=== PATIENT | male | born 1985 | race Caucasian/White ===

== ENCOUNTER 2018-08-03 22:38 | Outpatient (REF) | payer SELFPAY ==
[2018-08-03 21:38] LABS: ALT 111 U/L (12-78); AST 52 U/L (15-37); Albumin 3.6 g/dL (3.4-5.0); Alkaline Phosphatase 92 U/L (46-116); Anion Gap 7.6 mmol/L (3-11); BUN 15 mg/dL (7-18); Bilirubin, Total 0.6 mg/dL (0.2-1.0); CO2 30.4 mmol/L (21.0-32.0); Calcium 9.3 mg/dL (8.5-10.1); Chloride 100 mmol/L (98-107); Glucose 116 mg/dL (70-100); Potassium 4.1 mmol/L (3.5-5.1); Sodium 138 mmol/L (136-145); Total Protein 7.5 g/dL (6.4-8.2)
== END 2018-08-03 22:58 ==
LOC: NCHCN 22:38
PROVIDERS: PCP Physician Assistant Medical; Visit Provider Physician Assistant Medical
DX: I10 Essential (primary) hypertension (principal)
CPT/HCPCS: 80053

== ENCOUNTER 2020-01-22 16:11 | Emergency (ER) | payer MEDICAID, SELFPAY ==
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
--- NOTE | 2020-01-22 16:15 | RT.EKG_ITS ---
APPROVED REPORT Exam: Resting ECG Patient Location: E HR:80 bpm ECG Measurements Heart Rate 80 AXIS KS 177 P 17 QRSd 109 QRS 34 QT 382 T 51 QTc 441 Conclusion Sinus rhythm...normal P axis, V-rate 60- 99
[2020-01-22 16:16] VITALS: BP 126/80; PULSE 85; RESP 20; TEMP 36.7; O2SAT 98
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
[2020-01-22 16:36] LABS: Abs Immature Grans 0.25 10^3/uL (0.0-0.06); Absolute Eosinophil Count 0.09 10^3/uL (0.0-0.7); Absolute Monocyte Count 1.42 10^3/uL (0.1-0.8); Absolute Neutrophil Count 10.18 10^3/uL (1.2-6.7); Basophils % 0.3; Eosinophils % 0.6; HCT 45.3 % (40.0-50.0); HGB 15.2 g/dL (13.5-17.5); Immature Grans % 1.6; Lymphocytes % 21.6; MCH 31.9 pg (27.0-33.0); MCHC 33.6 % (32.0-36.0); MPV 9.7 fL (8.0-11.0); Monocytes % 9.3; Neutrophils % 66.6; Nucleated RBC 0 %; Platelet Count 255 10^3/uL (130-400); RBC 4.77 10^6/uL (4.36-5.78); RDW 13.9 % (11.8-14.1); RDW-SD 48.7 fL; WBC 15.29 10^3/uL (4.4-10.8)
[2020-01-22 16:41] LABS: Absolute Basophil Count 0.05 10^3/uL (0.0-0.2)
[2020-01-22 16:55] LABS: ALT 100 U/L (16-63); AST 94 U/L (15-37); Albumin 3.5 g/dL (3.4-5.0); Alkaline Phosphatase 75 U/L (46-116); Anion Gap 10.7 mmol/L (3-11); BUN 15 mg/dL (7-18); Bilirubin, Total 0.5 mg/dL (0.2-1.0); CO2 28.3 mmol/L (21.0-32.0); CREATININE 1.24 mg/dL (0.70-1.30); Calcium 8.9 mg/dL (8.5-10.1); Chloride 97 mmol/L (98-107); ETHANOL BLOOD 138.3 mg/dL (<3); Glucose 103 mg/dL (74-106); Potassium 3.5 mmol/L (3.5-5.1); Sodium 136 mmol/L (136-145); Total Protein 7.4 g/dL (6.4-8.2)
[2020-01-22 16:58] LABS: Troponin I < 0.05 ng/mL (<0.06)
[2020-01-22] MEDS: fentaNYL 100 MCG/2 ML VIAL IVP (17:03)
[2020-01-22] MEDS: Omnipaque 350 MG/ML 100 ML BTL IJ (17:19)
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
[2020-01-22] MEDS: Lactated Ringers 1,000 ML 150 ML IV (18:01)
[2020-01-22 18:09] VITALS: BP 114/83; PULSE 98; RESP 22; TEMP 36; O2SAT 98
--- NOTE | 2020-01-22 18:46 | NUR.NOTE ---
Nursing Note: Pt vital signs lost from monitor after discharge. Pt had remained hemodynamically stable during stay, BP remained above 100 systolic, HR 80's-100, Ox remained above 96%
== END 2020-01-22 18:00 | disposition short-term general hospital (02) ==
PROVIDERS: Emergency Provider Student in an Organized Health Care Education/Training Program; PCP Physician Assistant Medical
DX: S22.41XA Multiple fractures of ribs, right side, initial encounter for closed fracture (principal); S27.0XXA Traumatic pneumothorax, initial encounter; S32.9XXA Fracture of unspecified parts of lumbosacral spine and pelvis, initial encounter for closed fracture; S01.112A Laceration without foreign body of left eyelid and periocular area, initial encounter; V53.5XXA Driver of pick-up truck or van injured in collision with car, pick-up truck or van in traffic accident, initial encounter; F10.120 Alcohol abuse with intoxication, uncomplicated; Y90.6 Blood alcohol level of 120-199 mg/100 ml; I10 Essential (primary) hypertension
CPT/HCPCS: 36415; 74177; 80053; 86850; 86900; 86901; 90471; 93005; 96374; 99291; 70450; 71260; 72125; 80320; 84484; 85025; 93010; J3010; J3490

== ENCOUNTER 2020-03-02 11:17 | Emergency (ER) | payer MEDICAID, SELFPAY ==
[2020-03-02] VITALS (92 sets, daily range): BP systolic 109–161; BP diastolic 58–87; PULSE 84–123; RESP 12–30; TEMP 37.7–39.1; O2SAT 94–100
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
[2020-03-02] MEDS: Acetaminophen 500 MG TAB 1000 MG PO (12:15)
[2020-03-02 12:27] LABS: Bilirubin Negative (Negative); Blood Negative (Negative); Clarity Clear (Clear); Glucose Negative (Negative); Ketones Negative (Negative); Leukocyte Esterase Negative (Negative); Nitrite Negative (Negative); Specific Gravity 1.025 (1.005-1.025); Urobilinogen 0.2 EU/dL (Up TO 0.2)
[2020-03-02] MEDS: Normal Saline 1,000 ML 1000 ML IV ×3 (12:40→15:39)
[2020-03-02] MEDS: Normal Saline Flush 10 ML SYR IVP (12:40)
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
[2020-03-02 14:25] LABS: Abs Immature Grans 0.07 10^3/uL (0.0-0.06); Absolute Basophil Count 0.03 10^3/uL (0.0-0.2); Absolute Eosinophil Count 0.01 10^3/uL (0.0-0.7); Absolute Lymphocyte Count 1.23 10^3/uL (1.2-3.4); Absolute Neutrophil Count 11.22 10^3/uL (1.2-6.7); Basophils % 0.2; Eosinophils % 0.1; HCT 43.8 % (40.0-50.0); HGB 14.5 g/dL (13.5-17.5); Immature Grans % 0.5; Lymphocytes % 8.8; MCH 30.1 pg (27.0-33.0); MCHC 33.1 % (32.0-36.0); MCV 90.9 fL (80-95); MPV 8.9 fL (8.0-11.0); Monocytes % 10.3; Neutrophils % 80.1; Nucleated RBC 0 %; Platelet Count 267 10^3/uL (130-400); RBC 4.82 10^6/uL (4.36-5.78); RDW 12.4 % (11.8-14.1); RDW-SD 41.2 fL; WBC 14.01 10^3/uL (4.4-10.8)
[2020-03-02 14:27] LABS: Absolute Monocyte Count 1.44 10^3/uL (0.1-0.8)
[2020-03-02 14:36] LABS: INR 1.1 (0.9-1.1); Prothrombin Time 11.1 sec (9.3-11.0)
[2020-03-02 14:43] LABS: ALT 28 U/L (16-63); AST 20 U/L (15-37); Albumin 3.4 g/dL (3.4-5.0); Alkaline Phosphatase 189 U/L (46-116); Anion Gap 11.6 mmol/L (3-11); BUN 17 mg/dL (7-18); Bilirubin, Total 0.6 mg/dL (0.2-1.0); CO2 25.4 mmol/L (21.0-32.0); CREATININE 0.94 mg/dL (0.70-1.30); Calcium 9.1 mg/dL (8.5-10.1); Chloride 99 mmol/L (98-107); Glucose 101 mg/dL (74-106); Potassium 4.2 mmol/L (3.5-5.1); Sodium 136 mmol/L (136-145); Total Protein 7.6 g/dL (6.4-8.2)
[2020-03-02 14:59] LABS: ESR 24 mm/hr (0-15)
[2020-03-02] MEDS: Omnipaque 350 MG/ML 100 ML BTL IJ (15:20)
[2020-03-02] MEDS: Normal Saline - Diluent 50 ML VIAL IV (15:21)
[2020-03-02] MEDS: VANCOMYCIN/WATER (PEG) 2 GM/400 ML BAG IVPB (16:10)
[2020-03-02] MEDS: PIPERACILLIN/TAZO 3.375 GM in Normal Saline 50 ML IVPB (16:12)
[2020-03-02] MEDS: Acetaminophen 500 MG TAB PO (16:55)
[2020-03-02] MEDS: Ibuprofen 600 MG TAB PO (18:04)
[2020-03-04 13:10] LABS: SARS-CoV-2 RNA Detected (NotDetected); SARS-CoV-2 RNA Source Nasopharynx
== END 2020-03-02 18:35 | disposition short-term general hospital (02) ==
PROVIDERS: Physician Assistant; Emergency Provider Registered Nurse Emergency; PCP Physician Assistant Medical
DX: L02.214 Cutaneous abscess of groin (principal); Y83.8 Other surgical procedures as the cause of abnormal reaction of the patient, or of later complication, without mention of misadventure at the time of the procedure; Z11.59 Encounter for screening for other viral diseases; I10 Essential (primary) hypertension
CPT/HCPCS: 36415; 71275; 74177; 80053; 85652; 87040; 96361; 96365; 96366; 96375; 99291; U0003; 81003; 83605; 85025; 85610; 86140; J2543; J3490

== ENCOUNTER 2020-03-24 21:57 | Outpatient (REF) | payer MEDICAID, SELFPAY ==
[2020-03-24 19:03] LABS: Abs Immature Grans 0.03 10^3/uL (0.0-0.06); Absolute Basophil Count 0.04 10^3/uL (0.0-0.2); Absolute Eosinophil Count 0.16 10^3/uL (0.0-0.7); Absolute Lymphocyte Count 2.37 10^3/uL (1.2-3.4); Absolute Monocyte Count 0.97 10^3/uL (0.1-0.8); Absolute Neutrophil Count 5.46 10^3/uL (1.2-6.7); Basophils % 0.4; Eosinophils % 1.8; HCT 44.5 % (40.0-50.0); HGB 14.8 g/dL (13.5-17.5); Immature Grans % 0.3; Lymphocytes % 26.2; MCH 29.4 pg (27.0-33.0); MCHC 33.3 % (32.0-36.0); MCV 88.5 fL (80-95); MPV 9.9 fL (8.0-11.0); Monocytes % 10.7; Neutrophils % 60.6; Nucleated RBC 0 %; Platelet Count 333 10^3/uL (130-400); RBC 5.03 10^6/uL (4.36-5.78); RDW 12.3 % (11.8-14.1); RDW-SD 39.4 fL; WBC 9.03 10^3/uL (4.4-10.8)
[2020-03-24 19:44] LABS: ESR 26 mm/hr (0-15)
[2020-03-26 16:14] LABS: CRP, High Sensitivity 12.42 mg/L (See Note)
== END 2020-03-24 22:17 ==
LOC: NCHCN 21:57
PROVIDERS: PCP Physician Assistant Medical; Visit Provider Physician Assistant Medical
DX: K65.1 Peritoneal abscess (principal)
CPT/HCPCS: 85652; 86141; 85025

== ENCOUNTER 2020-04-18 20:27 | Outpatient (REF) | payer MEDICAID, SELFPAY ==
[2020-04-18 20:29] LABS: ALT 55 U/L (16-63); AST 23 U/L (15-37); Alkaline Phosphatase 132 U/L (46-116); BUN 22 mg/dL (7-18); Bilirubin, Total 0.3 mg/dL (0.2-1.0); CREATININE 0.94 mg/dL (0.70-1.30); Calcium 9.2 mg/dL (8.5-10.1); Calculated LDL 137 mg/dL (<100); Chloride 101 mmol/L (98-107); Cholesterol 211 mg/dL (<200); Glucose 87 mg/dL (74-106); HDL Cholesterol 42 mg/dL (40-60); Potassium 4.5 mmol/L (3.5-5.1); Sodium 138 mmol/L (136-145); Triglyceride 160 mg/dL (<150)
[2020-04-18 20:41] LABS: Hemoglobin A1C 5.3 % (<5.7)
[2020-04-18 20:52] LABS: Uric Acid 7.4 mg/dL (3.5-7.2)
== END 2020-04-18 20:47 ==
LOC: NCHCN 20:27
PROVIDERS: PCP Physician Assistant Medical; Visit Provider Physician Assistant Medical
DX: I10 Essential (primary) hypertension (principal); R79.89 Other specified abnormal findings of blood chemistry; R73.9 Hyperglycemia, unspecified
CPT/HCPCS: 80053; 80061; 83036; 84550

== ENCOUNTER 2020-05-12 12:58 | Outpatient (REF) | payer MEDICAID, SELFPAY | END 2020-05-12 13:18 | LOC: NCHCN 12:58 | PROVIDERS: PCP Physician Assistant Medical; Visit Provider Physician Assistant Medical | DX: Z48.03 Encounter for change or removal of drains (principal); Z51.89 Encounter for other specified aftercare | CPT/HCPCS: 87070; 87205 ==

== ENCOUNTER 2020-11-24 12:17 | Outpatient (REF) | payer MEDICAID, SELFPAY ==
[2020-11-24 17:07] LABS: ALT 70 U/L (16-63); AST 38 U/L (15-37); Albumin 4.3 g/dL (3.4-5.0); Alkaline Phosphatase 130 U/L (46-116); Anion Gap 13.6 mmol/L (3-11); BUN 21 mg/dL (7-18); Bilirubin, Total 0.8 mg/dL (0.2-1.0); CO2 23.4 mmol/L (21.0-32.0); CREATININE 1.1 mg/dL (0.70-1.30); Calcium 9.5 mg/dL (8.5-10.1); Calculated LDL 160 mg/dL (<100); Chloride 102 mmol/L (98-107); Cholesterol 231 mg/dL (<200); Glucose 98 mg/dL (74-106); HDL Cholesterol 37 mg/dL (40-60); Potassium 4.6 mmol/L (3.5-5.1); Sodium 139 mmol/L (136-145); Total Protein 7.9 g/dL (6.4-8.2); Triglyceride 170 mg/dL (<150)
[2020-11-24 17:18] LABS: Uric Acid 6.8 mg/dL (3.5-7.2)
== END 2020-11-24 12:18 | disposition home or self-care (01) ==
LOC: NCHCN 12:17
PROVIDERS: PCP Physician Assistant Medical; Visit Provider Physician Assistant Medical
DX: I10 Essential (primary) hypertension (principal); E66.01 Morbid (severe) obesity due to excess calories
CPT/HCPCS: 80053; 80061; 84550

== ENCOUNTER 2021-02-09 17:17 | Emergency (ER) | payer MEDICAID, SELFPAY ==
[2021-02-09 17:26] VITALS: BP 153/90; PULSE 75; RESP 16; TEMP 36.2; O2SAT 98
--- NOTE | 2021-02-09 17:58 | W.ED.GENAD ---
Discharge Plan Disposition Patient Disposition: HOME Condition: Stable Discharge Details Clinical Impression: Pain, dental, Sinus pain Primary Care Provider: Steph Villanueva ED Provider: Clarisa Adkins Home Meds and New Rx's Prescriptions: New amoxicillin-pot clavulanate [Augmentin] 875-125 mg tablet 1 tab PO BID Qty: 14 RF: 0 Continued atenolol 25 mg Tablet 25 mg PO DAILY RF: 0 amlodipine 5 mg Tablet 5 mg PO DAILY RF: 0 hydrochlorothiazide 12.5 mg Tablet 12.5 mg PO DAILY RF: 0 lisinopril 5 mg tablet 5 mg PO DAILY RF: 0 Discharge Instructions Instructions: Toothache (ED) Additional Instructions: Please encourage hydration. Tylenol and/or ibuprofen as needed for discomfort. Please take the antibiotic as prescribed. You will need definitive care with a dentist, attached is a little of local dentist. Please call Friday to schedule follow-up appointment. Please also follow-up with your primary care in the next few weeks for reevaluation and discuss your elevated blood pressure. If you develop fever/chills, increased pain or other new/worsening symptoms please seek care urgently once again. Referrals: Steph Villanueva PA [Primary Care Provider] - Discharge Data Discharge Date/Time-TO BE ENTERED AT DEPARTURE: 02/09/21 18:22 Medical Decision Making Patient is a pleasant 35-year-old male presenting today with chief complaint of right upper dental pain. States this began about 8 days ago and is progressively been increasing. Denies any fevers or chills. States the pain is also in the right sinus. States that initially presents with sinus disease has some congestion and sore throat. However, is now having pain when he bites down on the posterior right upper molar. Pain is worse with eating. States that area of pain is cracked, has not seen a dentist in 5+ years. On exam, patient appears nontoxic. Normal tympanic membrane. Patient has enlarged lymph node on the left side but he states that this is chronic and unchanged. Intraoral exam is fairly benign. He does have tenderness near the #2 tooth and this tooth is cracked. However, the gingiva around this are normal. I do not appreciate any swelling, erythema. Patient has been reporting some facial swelling but this is not objectively noted on exam. No area of fluctuance. Posterior oropharynx is normal. No swelling under the tongue. Patient is tender over the maxillary sinus and does have some yellow discharge from his nose. I am more concerned for sinusitis at this time rather than dental infection. It is quite early in the course to treat for sinusitis. However, as he is having dental pain with chewing as well as a cracked tooth, I did consider an atypical presentation of a dental infection. Will treat with antibiotics. Encourage hydration. Return precautions were discussed. History exam is not consistent with meningitis your [employer] infection at this time. Patient does not appear septic. List of local dentist given to the patient. He will call Friday to schedule follow-up appointment for definitive care. Patient's blood pressure also slightly elevated. Advise follow-up with primary care. All questions concerns were addressed in agreement this plan. HPI General Mode of arrival: ambulatory. Date/Time Provider Initiated Documentation: 02/09/21 17:58. Limitations to Documentation: no limitations. Information obtained by: patient and RN notes reviewed. History of Present Illness 35 year old M presents to the emergency department with the chief complaint of right upper dental pain, described as severe, with intensity rated at 8. Quality is described as aching, and is localized to the mouth. Patient reports no radiation. Patient started experiencing this day(s) and it has been constant. No relieving factors improve symptom(s), Eating worsens symptoms . Patient notes no other symptoms.; denies cough, fever/chills, loss of appetite, nausea/vomiting and rash. Patient did receive the following treatments prior to arrival, none Related Data Home Medications Medication Instructions Recorded Confirmed amlodipine 5 mg PO DAILY 01/22/20 02/09/21 atenolol 25 mg PO DAILY 01/22/20 02/09/21 hydrochlorothiazide 12.5 mg PO DAILY 01/22/20 02/09/21 lisinopril 5 mg PO DAILY 03/02/20 02/09/21 amoxicillin-pot clavulanate 1 tab PO BID #14 tab 02/09/21 [Augmentin] Previous Rx's Medication Instructions Recorded amoxicillin-pot clavulanate 1 tab PO BID #14 tab 02/09/21 [Augmentin] Allergies Allergy/AdvReac Type Severity Reaction Status Date / Time No Known Allergies Allergy Unverified 02/09/21 17:34 General Stated Complaint: DentalOral SUKHWINDER: 4 Review of Systems Constitutional Constitutional: Reports as per HPI, Denies chills, Denies fatigue, Denies fever(s) and Denies headache(s) ENT Ears, Nose, Mouth, and Throat: Reports as per HPI, Reports halitosis, Reports dental pain, Denies dysphagia, Denies dizziness, Denies ear discharge, Denies otalgia, Reports facial pain, Denies headache(s), Denies lip swelling, Denies nasal congestion, Reports nasal discharge, Denies odynophagia, Reports sinus pain, Reports sinus pressure, Denies sore throat and Denies throat swelling Respiratory Respiratory: Reports as per HPI and Denies cough Gastrointestinal Gastrointestinal: Reports as per HPI, Denies dysphagia and Denies odynophagia Integumentary/Breasts Skin/Breast: Reports as per HPI, Denies erythema, Denies rash and Denies skin pain Neurologic Neurologic: Reports as per HPI, Denies dizziness and Denies headache(s) Endocrine Endocrine: Denies fatigue Allergic/Immunologic Allergic/Immunologic: Denies lip swelling and Denies throat swelling PFSH Medical History Hypertension Social History Smoking/Tobacco Use Status: Never Smoking risk assessment performed?: Yes Alcohol Intake: current Alcohol Intake frequency: a few times a month Substance use type: does not use Do you feel safe at home: Yes Do you feel safe in your relationship?: Yes Exam Const General: cooperative, healthy appearing, comfortable, no acute distress, well developed and well groomed Nutritional Appearance: well nourished and obese Orientation: alert and awake [facility] Head: normal to inspection, normocephalic and atraumatic Ears: hearing grossly normal bilaterally, external ears normal and TM's normal bilaterally General nose exam: external nose normal and nares normal Face and sinus: normal facial exam, face symmetric and sinus tenderness (right) maxillary Mouth: oral mucosae normal, lip normal, tongue normal, oropharynx normal, no muffled voice, no trismus and No restricted motion Teeth and gingiva: gingiva normal and fair dentition (caries noted at the #2 tooth, at area of pain) Throat: posterior oropharynx normal, tonsils normal and uvula midline Eyes General: appearance normal, both eyes and all related structures Neck Neck: normal visual inspection, full ROM, lymphadenopathy noted (on left, patient states this is chronic), supple and no anterior neck swelling Resp Effort & Inspection: normal respiratory effort, able to speak in complete sentences and no respiratory distress Auscultation: clear to auscultation bilaterally, no rales, no rhonchi and no wheezes Cardio Rate: regular rate Rhythm: regular rhythm Heart Sounds: S1 normal and S2 normal Skin General skin exam: no rashes or lesions noted Trauma: no lacerations or abrasions Neuro General: patient alert and patient awake Cognition: normal cognition Speech: speech normal Gait: normal gait Psych Appearance: grossly normal and well kempt Mental Status: mental status grossly normal Speech and Movement: speech and movement normal Course Vital Signs Vital signs: Vital Signs Temperature 36.2 C L 02/09/21 17:26 Pulse 75 02/09/21 17:26 Respiratory Rate 16 02/09/21 17:26 Blood Pressure 153/90 H 02/09/21 17:26 Pulse Oximetry 98 02/09/21 17:26 Temperature 36.2 C L 02/09/21 17:26 Temperature Source Tympanic 02/09/21 17:26 Pulse 75 02/09/21 17:26 Respiratory Rate 16 02/09/21 17:26 Respiratory Effort Non-Labored 02/09/21 17:30 Blood Pressure 153/90 H 02/09/21 17:26 Blood Pressure Position Sitting 02/09/21 17:26 Pulse Oximetry 98 02/09/21 17:26 Pain Level 8 02/09/21 17:30 PAWSS Have you Been Recently Intoxicated or Drunk Within the Last 30 days?: No Have you Ever Experienced Previous Episodes of Alcohol Withdrawal?: No Have you ever Experienced Withdrawal Seizures?: No Have you ever Experienced Delirium Tremens(DT)s?: No Have you ever undergone Alcohol Rehabilitation Treatment (i.e, inpt ot outpatient treatment programs)?: No Have you ever Experienced Blackouts?: No Have you ever Combined Alcohol with other Downers within the last 90 days?: No Have you ever Combined Alcohol with any other Substance of Abuse during the last 90 days?: No Positive Blood Alcohol level on Presentation? [PCS.BAL]: No Evidence of Increased Autonomic Activity (i.e. HR>120, tremor, sweating, agitation, nausea)?: No Result: 0
== END 2021-02-09 18:22 | disposition home or self-care (01) ==
PROVIDERS: Emergency Provider Physician Assistant; PCP Physician Assistant Medical
DX: R68.84 Jaw pain (principal); J01.00 Acute maxillary sinusitis, unspecified
CPT/HCPCS: 99283

== ENCOUNTER 2021-07-17 16:55 | Outpatient (REF) | payer MEDICAID, SELFPAY ==
[2021-07-17 19:46] LABS: Hemoglobin A1C 5.3 % (<5.7)
[2021-07-17 19:48] LABS: ALT 48 U/L (16-63); AST 25 U/L (15-37); Alkaline Phosphatase 133 U/L (46-116); Anion Gap 7.1 mmol/L (3-11); BUN 18 mg/dL (7-18); Bilirubin, Total 0.5 mg/dL (0.2-1.0); CO2 27.9 mmol/L (21.0-32.0); CREATININE 0.9 mg/dL (0.70-1.30); Calcium 9.3 mg/dL (8.5-10.1); Calculated LDL 114 mg/dL (<100); Chloride 103 mmol/L (98-107); Cholesterol 160 mg/dL (<200); Glucose 97 mg/dL (74-106); HDL Cholesterol 36 mg/dL (40-60); Potassium 4.3 mmol/L (3.5-5.1); Sodium 138 mmol/L (136-145); Total Protein 7.1 g/dL (6.4-8.2); Triglyceride 52 mg/dL (<150)
[2021-07-24 15:16] LABS: Testosterone, Free 9.41 ng/dL (4.65-18.1); Testosterone, Total 392 ng/dL (240-950)
== END 2021-07-17 16:56 | disposition home or self-care (01) ==
LOC: NCHCN 16:55
PROVIDERS: PCP Physician Assistant Medical; Visit Provider Physician Assistant Medical
DX: I10 Essential (primary) hypertension (principal)
CPT/HCPCS: 80053; 80061; 84402; 84403; 83036; 84443

== ENCOUNTER 2021-11-16 21:44 | Outpatient (REF) | payer MEDICAID, SELFPAY ==
[2021-11-16 16:02] LABS: ALT 45 U/L (16-63); AST 30 U/L (15-37); Albumin 3.9 g/dL (3.4-5.0); Alkaline Phosphatase 106 U/L (46-116); Anion Gap 7.1 mmol/L (3-11); BUN 33 mg/dL (7-18); Bilirubin, Total 0.4 mg/dL (0.2-1.0); CO2 28.9 mmol/L (21.0-32.0); CREATININE 0.9 mg/dL (0.70-1.30); Calcium 9.1 mg/dL (8.5-10.1); Chloride 101 mmol/L (98-107); Glucose 115 mg/dL (74-106); Potassium 3.6 mmol/L (3.5-5.1); Sodium 137 mmol/L (136-145); Total Protein 7.4 g/dL (6.4-8.2); Uric Acid 5.3 mg/dL (3.5-7.2)
== END 2021-11-16 21:45 | disposition home or self-care (01) ==
LOC: NCHCN 21:44
PROVIDERS: PCP Physician Assistant Medical; Visit Provider Physician Assistant Medical
DX: I10 Essential (primary) hypertension (principal)
CPT/HCPCS: 80053; 84550

== ENCOUNTER 2023-06-17 14:48 | Outpatient (REF) | payer MEDICAID, SELFPAY ==
[2023-06-17 19:48] LABS: HCT 42.2 % (40.0-50.0); HGB 14.3 g/dL (13.5-17.5); MCHC 33.9 % (32.0-36.0); MCV 86 fL (80-95); MPV 10.5 fL (8.0-11.0); Platelet Count 203 10^3/uL (130-400); RBC 4.93 10^6/uL (4.36-5.78); RDW 12.5 % (11.8-14.1); RDW-SD 38.7 fL; WBC 6.79 10^3/uL (4.4-10.8)
[2023-06-17 20:02] LABS: Hemoglobin A1C 5.1 % (<5.7)
[2023-06-17 20:08] LABS: ALT 48 U/L (16-63); AST 33 U/L (15-37); Albumin 3.8 g/dL (3.4-5.0); Alkaline Phosphatase 96 U/L (46-116); BUN 25 mg/dL (7-18); Bilirubin, Total 0.4 mg/dL (0.2-1.0); CREATININE 1.1 mg/dL (0.70-1.30); Calcium 9.4 mg/dL (8.5-10.1); Calculated LDL 92 mg/dL (<100); Chloride 105 mmol/L (98-107); Cholesterol 153 mg/dL (<200); Estimated GFR 87.57 (mL/min/1.73m2); Glucose 113 mg/dL (74-106); HDL Cholesterol 42 mg/dL (40-60); Potassium 4.1 mmol/L (3.5-5.1); Sodium 143 mmol/L (136-145); Total Protein 7.5 g/dL (6.4-8.2); Triglyceride 96 mg/dL (<150)
== END 2023-06-17 14:49 | disposition home or self-care (01) ==
LOC: NCHCN 14:48
PROVIDERS: PCP Physician Assistant Medical; Visit Provider Physician Assistant Medical
DX: I10 Essential (primary) hypertension (principal); R94.5 Abnormal results of liver function studies; R73.09 Other abnormal glucose; E66.01 Morbid (severe) obesity due to excess calories
CPT/HCPCS: 80053; 80061; 85027; 83036

== ENCOUNTER → 2023-06-24 02:34 | Outpatient (CLI) | payer MEDICAID, SELFPAY ==
--- NOTE | 2023-06-24 | DI.US_ITS ---
Exam(s) US ABDOMEN LIMITED EXAM: US ABDOMEN LIMITED CLINICAL HISTORY: Increased LFTs, R94.5 TECHNIQUE: Ultrasound abdomen performed using standard protocol. COMPARISON: CT CT CHEST PE ABD PELVIS W from 03/02/2020 FINDINGS: PANCREAS: Normal where visualized. LIVER: There is mild increased echogenicity of the liver relative to the kidney. The liver has a nod ular contour. No discrete hepatic mass is seen sonographically. Hepatopetal flow in the Portal Vein . The liver measures in 17.4 cm length. GALLBLADDER: No evidence of cholelithiasis. No evidence of wall thickening. No pericholecystic fluid identified. BILIARY SYSTEM: Common bile duct measures < 7 mm. No intrahepatic biliary ductal dilation. CANTRELL'S SIGN: Negative. RIGHT KIDNEY: Kidney is normal in size. No evidence of renal calculi. No evidence of hydronephrosis. No renal mass or cyst identified. ASCITES: None seen. IMPRESSION: 1. The liver shows mild increased echogenicity suggesting fatty infiltration. 2. The liver has a nodular contour which can be seen with hepatic dysfunction/cirrhosis. Please crystal elate clinically. 3. The liver is mildly enlarged. DATA REPOSITORY:
== END ==
PROVIDERS: PCP Physician Assistant Medical; Visit Provider Physician Assistant Medical
DX: K76.0 Fatty (change of) liver, not elsewhere classified (principal); R16.0 Hepatomegaly, not elsewhere classified; K76.89 Other specified diseases of liver; R94.5 Abnormal results of liver function studies
CPT/HCPCS: 76705

== ENCOUNTER 2023-07-24 09:40 | Outpatient (REF) | payer MEDICAID, SELFPAY ==
--- NOTE | 2023-07-24 10:10 | SKI_PTH ---
PATIENT: Eric Busby LOC: [facility] U#:[id number] AGE/SX: 38/M ROOM: RE07/24/[address]: Padma Clark : 1985 BED: DIS: 07/24/2023 SPEC #: [id number] RECD: 07/24/23 12:41 STATUS: ARMAND REQ #: [id number] GWEN: 07/24/23 10:[address]: Padma Clark DEPT: Surgical Specimen RECD BY: Mary Harrell ENTERED: 07/24/23 12:41 SP TYPE: HI CERDA DR: Steph Villanueva Tissues: 1 - SKIN BIOPSY(SHAVE/PUNCH) Procedures: GROSS AND MICRO LEVEL 3 Comments: [id number]
== END 2023-07-24 09:41 | disposition home or self-care (01) ==
LOC: LBN 09:40
PROVIDERS: PCP Physician Assistant Medical; Visit Provider Surgery
DX: L73.8 Other specified follicular disorders (principal); D49.2 Neoplasm of unspecified behavior of bone, soft tissue, and skin
CPT/HCPCS: 88304; 88305